=== PATIENT | male | born 1975 | race Caucasian/White ===

== ENCOUNTER 2016-09-28 10:25 | Emergency (ER) | payer OTHER ==
[~2016-09-28] VITALS: Ht 182.9 cm; Wt 127.3 kg
--- NOTE | 2016-09-28 10:49 | ED.ADGEN ---
Past History Past Medical History: Diabetes Smoking: Non-smoker Alcohol Use: None Drug Use: None Adult General HPI HPI Patient is a 41 year old male who presents with acute onset of dyspnea just prior to arrival he felt like he couldn't get enough air this lasted less than 15 minutes has since resolved prior to him arriving here. He denies any chest pain or dyspnea now no wheezing no cough no fever. Denies sore throat. Does report a history of irregular heartbeat or perhaps tachyarrhythmias in the past and takes medicine for this. Review of Systems Review of Systems Constitutional: Denies fever or chills [] Eyes: Denies change in visual acuity, redness, or eye pain [] HENT: Denies nasal congestion or sore throat [] Respiratory: Denies cough or shortness of breath [] Cardiovascular: No additional information not addressed in HPI [] GI: Denies abdominal pain, nausea, vomiting, bloody stools or diarrhea [] : Denies dysuria or hematuria [] Musculoskeletal: Denies back pain or joint pain [] Integument: Denies rash or skin lesions [] Neurologic: Denies headache, focal weakness or sensory changes [] Endocrine: Denies polyuria or polydipsia [] Current Medications Current Medications Current Medications Medications (Trade) Dose Ordered Sig/Rashid Start Time Stop Time Status Last Admin Dose Admin Diphenhydramine HCl (Benadryl) 50 mg 1X ONCE 09/28/16 12:20 09/28/16 12:21 DC Insulin Human Regular (NovoLIN R) 10 unit 1X ONCE 09/28/16 11:30 09/28/16 11:31 DC 09/28/16 12:07 10 UNIT Sodium Chloride 1,000 ml @ 1,000 mls/hr 1X ONCE 09/28/16 11:00 09/28/16 11:59 DC 09/28/16 11:28 1,000 MLS/HR Allergies Allergies Allergies Coded Allergies Type Severity Reaction Last Updated Verified No Known Drug Allergies 09/28/16 No Physical Exam Physical Exam Constitutional: Well developed, well nourished, no acute distress, non-toxic appearance. [] HENT: Normocephalic, atraumatic, bilateral external ears normal, oropharynx moist, no oral exudates, nose normal. [] Eyes: PERRLA, EOMI, conjunctiva normal, no discharge. [] Neck: Normal range of motion, no tenderness, supple, no stridor. [] Cardiovascular:Heart rate regular rhythm, no murmur [] Lungs & Thorax: Bilateral breath sounds clear to auscultation [] Abdomen: Bowel sounds normal, soft, no tenderness, no masses, no pulsatile masses. [] Skin: Warm, dry, no erythema, no rash. [] Back: No tenderness, no CVA tenderness. [] Extremities: No tenderness, no cyanosis, no clubbing, ROM intact, no edema. [] Neurologic: Alert and oriented X 3, normal motor function, normal sensory function, no focal deficits noted. [] Psychologic: Affect normal, judgement normal, mood normal. [] Current Patient Data Vital Signs Vital Signs Date Time Temp Pulse Resp B/P (MAP) Pulse Ox O2 Delivery O2 Flow Rate FiO2 09/28/16 10:38 97.8 91 20 96 Room Air Lab Results Laboratory Tests Test 09/28/16 10:48 09/28/16 11:05 Glucose (Fingerstick) 443 mg/dL (70-99) H Sodium Level 132 mmol/L (136-145) L Potassium Level 4.2 mmol/L (3.5-5.1) Chloride Level 95 mmol/L (98-107) L Carbon Dioxide Level 26 mmol/L (21-32) Anion Gap 11 (6-14) Blood Urea Nitrogen 20 mg/dL (8-26) Creatinine 1.3 mg/dL (0.7-1.3) Estimated GFR (Cockcroft-Gault) 61.1 BUN/Creatinine Ratio 15 (6-20) Glucose Level 445 mg/dL (70-99) H Calcium Level 9.1 mg/dL (8.5-10.1) Total Bilirubin 0.8 mg/dL (0.2-1.0) Aspartate Amino Transferase (AST) 24 U/L (15-37) Alanine Aminotransferase (ALT) 44 U/L (16-63) Alkaline Phosphatase 71 U/L (46-116) Total Protein 7.6 g/dL (6.4-8.2) Albumin 4.5 g/dL (3.4-5.0) Albumin/Globulin Ratio 1.5 (1.0-1.7) Accu-Chek EKG EKG EKG [normal sinus rhythm rate of 82 no STEMI QTC of 412 interpreted by me at 11: 30 AM] Radiology/Procedures Radiology/Procedures Chest x-ray no acute pathology images were independently reviewed by me at 11: 59 AM. [] Course & Med Decision Making Course & Med Decision Making Pertinent Labs and Imaging studies reviewed. (See chart for details) Review labs demonstrates hyperglycemia without evidence of diabetic ketoacidosis. EKG and chest x-ray were unremarkable. Patient did have an episode similar to prior to his arrival and they examined him and he was in no distress able to swallow and speak normally with normal vital signs normal pulse rate clear lungs. We gave him IV fluids and IV insulin. I did give him some IV Benadryl to see if that might help prevent further symptoms. Advised follow-up with his PCP for further evaluation and management of his hyperglycemia. Apparently the patient ate at [employer] prior to coming here and did not take his insulin so that probably explains the hyperglycemia. [12:34 PM examination patient's resting comfortably fluids are infused he feels better and wants to go home and discuss test results and findings with the patient and his . Counseled regarding compliance with insulin and the need for follow-up. We will prescribe an albuterol inhaler to be used as needed and recommended Benadryl for any itching or throat swelling.] Final Impression Final Impression Acute dyspnea, poorly controlled diabetes, hyperglycemia [] Problems: Dragon Disclaimer Dragon Disclaimer This electronic medical record was generated, in whole or in part, using a voice recognition dictation system. PORFIRIO ELAM MD Sep 28, 2016 10:49
--- NOTE | 2016-09-28 11:05 | RAD ---
EXAM: Chest one view. HISTORY: Dyspnea. COMPARISON: None. FINDINGS: A frontal view of the chest is obtained. There are no confluent infiltrates. There is no pneumothorax or pleural effusion. The heart is not enlarged. IMPRESSION: 1. No confluent infiltrates.
[2016-09-28] MEDS: IV NORMAL SALINE 1,000ML 1,000 ML IV ONE (11:28)
--- NOTE | 2016-09-28 11:35 | EKG ---
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
[2016-09-28 11:54] LABS: ALBUMIN 4.5 g/dL (3.4-5.0); ALBUMIN/GLOBULIN RATIO 1.5 (1.0-1.7); CALCIUM 9.1 mg/dL (8.5-10.1); CREATININE 1.3 mg/dL (0.7-1.3); GFR 61.1; POTASSIUM 4.2 mmol/L (3.5-5.1); TOTAL BILIRUBIN 0.8 mg/dL (0.2-1.0); TOTAL PROTEIN 7.6 g/dL (6.4-8.2)
[2016-09-28] MEDS: INSULIN REGULAR 100 UNIT/ML 10ML VIAL. IV ONE (12:07)
[2016-09-28] MEDS: diphenhydrAMINE 50 MG/ML VIAL IVP ONE (12:08)
[2016-09-28] MEDS: diphenhydrAMINE 50 MG/ML VIAL IV ONE (12:20)
[2016-09-28] MEDS ORDERED: ALBU6.7H IH (12:41)
[2016-09-28 12:51] VITALS: BP 116/56
== END 2016-09-28 12:52 | disposition home or self-care (01) ==
LOC: ER 10:25
DX: R06.00 Dyspnea, unspecified (principal); E11.65 Type 2 diabetes mellitus with hyperglycemia
CPT/HCPCS: 36415; 71010; 80053; 82947; 93005; 96361; 96374; 96375; 99285; J1200; J1815; J7030

== ENCOUNTER 2018-04-24 20:05 | Emergency (ER) | payer SELFPAY ==
[~2018-04-24] VITALS: Ht 182.9 cm; Wt 134.0 kg
[~2018-04-24 20:05] MED LIST: ALBU2.5V8 IH
--- NOTE | 2018-04-24 20:13 | ED.ADGEN ---
Past History Past Medical History: Angina, Diabetes, Hypertension Past Surgical History: Appendectomy Smoking: Non-smoker Alcohol Use: None Drug Use: None Adult General Chief Complaint Chief Complaint ".. My sugars have been up... and my BP was up tonight... I for got to take my HTN meds this morning.. and Dr. Sarah has been re- doing my diabetic meds... " ".. I just feel off..." HPI HPI Patient is a 43 year old male who presents with above hx and complaints elevated Glucose and HTN. Pt. reports compliance with DM meds that are being moderated by Dr. Sarah. Pt. does admit to not taking his hypertensive meds this morning. Pt. had recently had upper respiratory and bronchitis type illness. No travel. Mother also had the upper respiratory infection now. Pt. denies immunosuppression. Pt. report compliance with his diet. Review of Systems Review of Systems Constitutional: Denies fever or chills [] Eyes: Denies change in visual acuity, redness, or eye pain [] HENT: Complaints of nasal congestion Respiratory: Hx of cough and some wheezing. Cardiovascular: No additional information not addressed in HPI [] GI: Denies abdominal pain, nausea, vomiting, bloody stools or diarrhea [] : Denies dysuria or hematuria [] Musculoskeletal: Denies back pain or joint pain [] Integument: Denies rash or skin lesions [] Neurologic: Denies headache, focal weakness or sensory changes [] Endocrine: Denies polyuria or polydipsia [] All other systems were reviewed and found to be within normal limits, except as documented in this note. Family History Family History Non-contributory Current Medications Current Medications Current Medications Medications (Trade) Dose Ordered Sig/Rashid Start Time Stop Time Status Last Admin Dose Admin Aspirin (Children'S Aspirin) 324 mg 1X ONCE 04/24/18 20:45 04/24/18 20:46 DC 04/24/18 21:01 324 MG Clonidine HCl (Catapres Tts-2) 1 patch 1X ONCE 04/24/18 20:45 04/24/18 20:46 DC 04/24/18 20:59 1 PATCH Clonidine HCl (Catapres) 0.2 mg 1X ONCE 04/24/18 20:45 04/24/18 20:46 DC 04/24/18 21:00 0.2 MG Sodium Chloride 1,000 ml @ 1,000 mls/hr Q1H 04/24/18 20:32 04/24/18 21:31 DC 04/24/18 20:32 1,000 MLS/HR See Nursing for home meds Allergies Allergies Allergies Coded Allergies Type Severity Reaction Last Updated Verified No Known Drug Allergies 09/28/16 No Physical Exam Physical Exam Constitutional:, no acute distress, non-toxic appearance. [] HENT: Normocephalic, atraumatic, bilateral external ears normal, oropharynx moist, no oral exudates, nose clear rhinorrhea. Eyes: PERRLA, EOMI, conjunctiva normal, no discharge. [] Neck: Normal range of motion, no tenderness, supple, no stridor. [] Cardiovascular:Heart rate regular rhythm, no murmur [] Lungs & Thorax: Bilateral breath sounds equal apex with few scattered wheezes on auscultation [] Abdomen: Bowel sounds normal, soft, no tenderness, no masses, no pulsatile masses. Obese. Old surgical scar. Skin: Warm, dry, no erythema, no rash. [] Back: No tenderness, no CVA tenderness. [] Extremities: No tenderness, no cyanosis, no clubbing, ROM intact, no edema. [] No cording noted. Neurologic: Alert and oriented X 3, normal motor function, normal sensory function, no focal deficits noted. [] Psychologic: Affect anxious, judgement normal, mood normal. [] Current Patient Data Vital Signs Vital Signs Date Time Temp Pulse Resp B/P (MAP) Pulse Ox O2 Delivery O2 Flow Rate FiO2 04/24/18 21:37 85 16 170/95 (120) 96 Room Air 04/24/18 20:05 98.1 Lab Results Laboratory Tests Test 04/24/18 20:38 White Blood Count 6.3 x10^3/uL (4.0-11.0) Red Blood Count 5.58 x10^6/uL (4.30-5.70) Hemoglobin 16.6 g/dL (13.0-17.5) Hematocrit 49.1 % (39.0-53.0) Mean Corpuscular Volume 88 fL (79-100) Mean Corpuscular Hemoglobin 30 pg (25-35) Mean Corpuscular Hemoglobin Concent 34 g/dL (31-37) Red Cell Distribution Width 13.3 % (11.5-14.5) Platelet Count 213 x10^3/uL (140-400) Neutrophils (%) (Auto) 64 % (31-73) Lymphocytes (%) (Auto) 27 % (24-48) Monocytes (%) (Auto) 6 % (0-9) Eosinophils (%) (Auto) 3 % (0-3) Basophils (%) (Auto) 1 % (0-3) Neutrophils # (Auto) 4.0 x10^3uL (1.8-7.7) Lymphocytes # (Auto) 1.7 x10^3/uL (1.0-4.8) Monocytes # (Auto) 0.4 x10^3/uL (0.0-1.1) Eosinophils # (Auto) 0.2 x10^3/uL (0.0-0.7) Basophils # (Auto) 0.1 x10^3/uL (0.0-0.2) Prothrombin Time 10.5 SEC (9.4-11.4) Prothrombin Time INR 1.1 (0.9-1.1) PTT 24 SEC (23-33) Urine Collection Type Unknown Urine Color Yellow Urine Clarity Clear Urine pH 6.0 Urine Specific [place] 1.010 Urine Protein Neg (NEG-TRACE) Urine Glucose (UA) 100 mg/dL (NEG) Urine Ketones (Stick) Neg mg/dL (NEG) Urine Blood Neg (NEG) Urine Nitrite Neg (NEG) Urine Bilirubin Neg (NEG) Urine Urobilinogen Dipstick 0.2 mg/dL (0.2 mg/dL) Urine Leukocyte Esterase Neg (NEG) Urine RBC Occ /HPF (0-2) Urine WBC 1-4 /HPF (0-4) Urine Squamous Epithelial Cells Few /LPF Urine Bacteria 0 /HPF (0-FEW) Urine Mucus Slight /LPF Sodium Level 141 mmol/L (136-145) Potassium Level 3.8 mmol/L (3.5-5.1) Chloride Level 100 mmol/L (98-107) Carbon Dioxide Level 29 mmol/L (21-32) Anion Gap 12 (6-14) Blood Urea Nitrogen 8 mg/dL (8-26) Creatinine 0.7 mg/dL (0.7-1.3) Estimated GFR (Cockcroft-Gault) 123.7 Glucose Level 179 mg/dL (70-99) H Calcium Level 9.0 mg/dL (8.5-10.1) Magnesium Level 1.8 mg/dL (1.8-2.4) Total Bilirubin 0.6 mg/dL (0.2-1.0) Direct Bilirubin 0.2 mg/dL (0.0-0.2) Aspartate Amino Transferase (AST) 31 U/L (15-37) Alanine Aminotransferase (ALT) 71 U/L (16-63) H Alkaline Phosphatase 65 U/L (46-116) Creatine Kinase 332 U/L (39-308) H Troponin I Quantitative < 0.017 ng/mL (0-0.055) SX-Xqh-X-Type Natriuretic Peptide 27 pg/mL (0-124) Total Protein 7.7 g/dL (6.4-8.2) Albumin 4.2 g/dL (3.4-5.0) Lipase 145 U/L (73-393) Urine Opiates Screen Neg (NEG) Urine Methadone Screen Neg (NEG) Urine Barbiturates Neg (NEG) Urine Phencyclidine Screen Neg (NEG) Urine Amphetamine/Methamphetamine Neg (NEG) Urine Benzodiazepines Screen Neg (NEG) Urine Cocaine Screen Neg (NEG) Urine Cannabinoids Screen Pos (NEG) Urine Ethyl Alcohol Neg (NEG) EKG EKG My interpretation of EKG shows sinus 82, slightly prolonged SC interval. Mild Lt axis[]. No findings of acute STEMI with contralateral changes. Radiology/Procedures Radiology/Procedures My interpretation of CXR show no acute cardiopulmonary changes. No free air under the diaphragm. [] Course & Med Decision Making Course & Med Decision Making Pertinent Labs and Imaging studies reviewed. (See chart for details) Follow up with primary. Wear Clonidine patch until follow up with Dr. Sarah. Take diabetic and HTN meds as previously directed. Return if any concerns. Push fluids. [] Final Impression Final Impression 1. Accelerated Hypertension 2. DM- 179 3. Recent Respiratory Infection[] 4. Marijuana use Dragon Disclaimer Dragon Disclaimer This electronic medical record was generated, in whole or in part, using a voice recognition dictation system. HARRY FAIR MD Apr 24, 2018 20:13
[2018-04-24] MEDS ORDERED: IV NORMAL SALINE 1,000ML 1,000 ML IV SCH (20:32)
[2018-04-24] MEDS ORDERED: ASPIRIN 81 MG TAB.CHEW PO ONE (20:45)
[2018-04-24] MEDS ORDERED: cloNIDine TTS-2 1 PATCH PATCH TD ONE (20:45)
[2018-04-24] MEDS ORDERED: cloNIDine HCL 0.1 MG TABLET PO ONE (20:45)
[2018-04-24 20:57] LABS: BASO # 0.1 x10^3/uL (0.0-0.2); BASO % 1 % (0-3); EOS # 0.2 x10^3/uL (0.0-0.7); EOS % 3 % (0-3); HEMATOCRIT 49.1 % (39.0-53.0); HEMOGLOBIN 16.6 g/dL (13.0-17.5); LYMPH # 1.7 x10^3/uL (1.0-4.8); LYMPH % 27 % (24-48); MEAN CORPUSCULAR HEMOGLOBIN 30 pg (25-35); MEAN CORPUSCULAR HGB CONC 34 g/dL (31-37); MEAN CORPUSCULAR VOLUME 88 fL (79-100); MONO # 0.4 x10^3/uL (0.0-1.1); MONO % 6 % (0-9); NEUT % 64 % (31-73); PLATELET COUNT 213 x10^3/uL (140-400); RED BLOOD COUNT 5.58 x10^6/uL (4.30-5.70); RED CELL DISTRIBUTION WIDTH 13.3 % (11.5-14.5); WHITE BLOOD COUNT 6.3 x10^3/uL (4.0-11.0)
--- NOTE | 2018-04-24 21:01 | EKG ---
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
[2018-04-24 21:14] LABS: BARBITURATES NEG (NEG); BENZODIAZEPINES NEG (NEG); CANNABINOIDS POS (NEG); COCAINE NEG (NEG); METHADONE NEG (NEG); OPIATES NEG (NEG); PHENCYCLIDINE NEG (NEG)
[2018-04-24 21:15] LABS: AMPHETAMINE/METHAMPHETAMINE NEG (NEG)
[2018-04-24 21:20] LABS: ALBUMIN 4.2 g/dL (3.4-5.0); CREATININE 0.7 mg/dL (0.7-1.3); DIRECT BILIRUBIN 0.2 mg/dL (0.0-0.2); GFR 123.7; MAGNESIUM 1.8 mg/dL (1.8-2.4); POTASSIUM 3.8 mmol/L (3.5-5.1); TOTAL BILIRUBIN 0.6 mg/dL (0.2-1.0); TOTAL PROTEIN 7.7 g/dL (6.4-8.2)
[2018-04-24 21:23] LABS: BILIRUBIN,URINE NEG (NEG); CLARITY,URINE CLEAR; COLOR,URINE YELLOW; GLUCOSE,URINE 100 mg/dL (NEG)
[2018-04-24 21:24] LABS: BACTERIA,URINE 0 /HPF (0-FEW); NITRITE,URINE NEG (NEG); RBC,URINE OCC /HPF (0-2); SQUAMOUS EPITHELIAL CELL,UR FEW /LPF; UROBILINOGEN,URINE 0.2 mg/dL (0.2 mg/dL)
[2018-04-24 22:10] VITALS: BP 149/68
--- NOTE | 2018-04-24 23:21 | RAD ---
Examination: CHEST PA LATERAL History: Cough, congestion, high blood pressure Comparison/Correlation: 09/28/2016 AP view of the chest Findings: Frontal and lateral views of chest were obtained. Heart size and pulmonary vasculature are normal. No infiltrate or effusion. No pneumothorax. Calcified granulomas are present. Bony structures are unremarkable for the patient's age. Impression: No active disease. Electronically signed by: Michael Ramirez MD (04/24/2018 11:17 PM) [facility]
[2018-04-28] MEDS ORDERED: LABE200T4 PO (10:32)
[2018-04-28] MEDS ORDERED: HYDR12.58 PO (10:32)
[2018-04-28] MEDS ORDERED: AMOX1TAB61 PO (10:33)
== END 2018-04-24 22:30 | disposition home or self-care (01) ==
LOC: ER 20:05
DX: E11.65 Type 2 diabetes mellitus with hyperglycemia (principal); I10 Essential (primary) hypertension; F12.90 Cannabis use, unspecified, uncomplicated
CPT/HCPCS: 36415; 71046; 80048; 80076; 80307; 81001; 82550; 83690; 83735; 83880; 84443; 84484; 85025; 85610; 85730; 93005; 96360; 96361; 99284-25; J7030

== ENCOUNTER 2018-04-25 22:41 | Emergency (ER) | payer SELFPAY ==
[~2018-04-25] VITALS: Ht 182.9 cm; Wt 132.6 kg
--- NOTE | 2018-04-25 22:56 | ED.ADGEN ---
Past History Past Medical History: Angina, Anxiety, Diabetes, Hypertension Past Surgical History: Appendectomy, Other Smoking: Non-smoker Alcohol Use: Rarely Drug Use: None Adult General Chief Complaint Chief Complaint ".. My BP is up again.. and I just not feeling right..." [facility] HPI Patient is a 43 year old male who presents with complaints of elevated BP. Pt. seen yesterday for similar complaints. Patient at time discharge on clonidine 0.2mg patch. She'll follow-up with his primary with moderation in his blood pressure meds. Patient currently taking lisinopril 40 mg a day. Carvedilol 3.125 twice a day. Patient still has clonidine patch on. Patient suspects his elevated blood pressures due pending job interview and emotional stress. Patient denies any other changes such yesterday. Patient normally follows with Dr. Kramer and Dr. Sarah. . Review of Systems Review of Systems Constitutional: Denies fever or chills [] Eyes: Denies change in visual acuity, redness, or eye pain [] HENT: Denies nasal congestion or sore throat [] Respiratory: Denies cough or shortness of breath [] Cardiovascular: No additional information not addressed in HPI [] GI: Denies abdominal pain, nausea, vomiting, bloody stools or diarrhea [] : Denies dysuria or hematuria [] Musculoskeletal: Denies back pain or joint pain [] Integument: Denies rash or skin lesions [] Neurologic: Denies headache, focal weakness or sensory changes [] Endocrine: Denies polyuria or polydipsia [] All other systems were reviewed and found to be within normal limits, except as documented in this note. Family History Family History Hypertension diabetes Current Medications Current Medications Current Medications Medications (Trade) Dose Ordered Sig/Rashid Start Time Stop Time Status Last Admin Dose Admin Clonidine HCl (Catapres) 0.2 mg 1X ONCE 04/26/18 01:30 04/26/18 01:30 DC 04/26/18 01:07 0.2 MG Labetalol HCl (Normodyne) 20 mg 1X ONCE 04/25/18 23:30 04/25/18 23:31 DC Lactated Ringer's 1,000 ml @ 100 mls/hr Q10H 04/25/18 23:00 04/26/18 01:14 DC 04/25/18 23:33 100 MLS/HR Magnesium Hydroxide (Milk Of Magnesia) 2,400 mg 1X ONCE 04/26/18 01:30 04/26/18 01:30 DC 04/26/18 01:06 2,400 MG Magnesium Sulfate 50 ml @ 25 mls/hr 1X ONCE 04/26/18 01:00 04/26/18 01:14 DC See nursing for home meds Allergies Allergies Allergies Coded Allergies Type Severity Reaction Last Updated Verified No Known Drug Allergies 09/28/16 No Physical Exam Physical Exam Constitutional: , no acute distress, non-toxic appearance. [] HENT: Normocephalic, atraumatic, bilateral external ears normal, oropharynx moist, no oral exudates, nose normal. [] Eyes: PERRLA, EOMI, conjunctiva normal, no discharge. [] Glasses Neck: Normal range of motion, no tenderness, supple, no stridor. [] Cardiovascular:Heart rate regular rhythm, no murmur [] Lungs & Thorax: Bilateral breath sounds clear to auscultation [] Abdomen: Bowel sounds normal, soft, no tenderness, no masses, no pulsatile masses. [] Obese. Old surgical scars. Skin: Warm, dry, no erythema, no rash. [] Back: No tenderness, no CVA tenderness. [] Extremities: No tenderness, no cyanosis, no clubbing, ROM intact, no edema. [] Neurologic: Alert and oriented X 3, normal motor function, normal sensory function, no focal deficits noted. [] Psychologic: Affect anxious, judgement normal, mood normal. [] Current Patient Data Vital Signs Vital Signs Date Time Temp Pulse Resp B/P (MAP) Pulse Ox O2 Delivery O2 Flow Rate FiO2 04/26/18 01:07 79 173/91 04/25/18 22:41 98.6 16 98 Room Air Lab Results Laboratory Tests Test 04/25/18 23:10 04/25/18 23:17 White Blood Count 7.1 x10^3/uL (4.0-11.0) Red Blood Count 5.35 x10^6/uL (4.30-5.70) Hemoglobin 15.9 g/dL (13.0-17.5) Hematocrit 46.8 % (39.0-53.0) Mean Corpuscular Volume 88 fL (79-100) Mean Corpuscular Hemoglobin 30 pg (25-35) Mean Corpuscular Hemoglobin Concent 34 g/dL (31-37) Red Cell Distribution Width 13.3 % (11.5-14.5) Platelet Count 247 x10^3/uL (140-400) Neutrophils (%) (Auto) 62 % (31-73) Lymphocytes (%) (Auto) 28 % (24-48) Monocytes (%) (Auto) 7 % (0-9) Eosinophils (%) (Auto) 3 % (0-3) Basophils (%) (Auto) 1 % (0-3) Neutrophils # (Auto) 4.4 x10^3uL (1.8-7.7) Lymphocytes # (Auto) 2.0 x10^3/uL (1.0-4.8) Monocytes # (Auto) 0.5 x10^3/uL (0.0-1.1) Eosinophils # (Auto) 0.2 x10^3/uL (0.0-0.7) Basophils # (Auto) 0.1 x10^3/uL (0.0-0.2) Sodium Level 141 mmol/L (136-145) Potassium Level 3.6 mmol/L (3.5-5.1) Chloride Level 102 mmol/L (98-107) Carbon Dioxide Level 29 mmol/L (21-32) Anion Gap 10 (6-14) Blood Urea Nitrogen 10 mg/dL (8-26) Creatinine 0.8 mg/dL (0.7-1.3) Estimated GFR (Cockcroft-Gault) 106.0 Glucose Level 127 mg/dL (70-99) H Calcium Level 9.0 mg/dL (8.5-10.1) Magnesium Level 1.6 mg/dL (1.8-2.4) L Total Bilirubin 0.5 mg/dL (0.2-1.0) Direct Bilirubin 0.1 mg/dL (0.0-0.2) Aspartate Amino Transferase (AST) 32 U/L (15-37) Alanine Aminotransferase (ALT) 66 U/L (16-63) H Alkaline Phosphatase 63 U/L (46-116) Creatine Kinase 381 U/L (39-308) H Troponin I Quantitative < 0.017 ng/mL (0-0.055) XI-Osw-G-Type Natriuretic Peptide 36 pg/mL (0-124) Total Protein 7.4 g/dL (6.4-8.2) Albumin 4.1 g/dL (3.4-5.0) Urine Collection Type Unknown Urine Color Yellow Urine Clarity Clear Urine pH 6.5 Urine Specific [place] 1.010 Urine Protein Neg (NEG-TRACE) Urine Glucose (UA) Neg mg/dL (NEG) Urine Ketones (Stick) Neg mg/dL (NEG) Urine Blood Neg (NEG) Urine Nitrite Neg (NEG) Urine Bilirubin Neg (NEG) Urine Urobilinogen Dipstick 0.2 mg/dL (0.2 mg/dL) Urine Leukocyte Esterase Neg (NEG) Urine RBC 0 /HPF (0-2) Urine WBC Occ /HPF (0-4) Urine Squamous Epithelial Cells Occ /LPF Urine Bacteria 0 /HPF (0-FEW) Urine Opiates Screen Neg (NEG) Urine Methadone Screen Neg (NEG) Urine Barbiturates Neg (NEG) Urine Phencyclidine Screen Neg (NEG) Urine Amphetamine/Methamphetamine Neg (NEG) Urine Benzodiazepines Screen Neg (NEG) Urine Cocaine Screen Neg (NEG) Urine Cannabinoids Screen Pos (NEG) Urine Ethyl Alcohol Neg (NEG) EKG EKG My interpretation EKG shows a sinus rhythm at 82 bpm. Does have a prolonged [place] interval. Does have some leftward axis. Some nonspecific anterior septal changes.No findings acute STEMI with contralateral changes.[] Radiology/Procedures Radiology/Procedures My interpretation chest x-ray shows no acute cardio pulmonary changes.[] Course & Med Decision Making Course & Med Decision Making Pertinent Labs and Imaging studies reviewed. (See chart for details). Patient to continue current hypertensive meds. Patient to keep follow-up with his primary care to moderate his med dosages. Patient return if any concerns. [] Final Impression Final Impression 1. Accelerated HTN[] 2. Hypo magnesium 3. DM 127 Dragon Disclaimer Dragon Disclaimer This electronic medical record was generated, in whole or in part, using a voice recognition dictation system. Dragon Disclaimer This chart was dictated in whole or in part using Voice Recognition software in a busy, high-work load, and often noisy Emergency Department environment. It may contain unintended and wholly unrecognized errors or omissions. Discharge Summary Visit Information Final Diagnosis Problems Medical Problems: (1) Accelerated hypertension Status: Acute Brief Hospital Course Allergies Allergies Coded Allergies Type Severity Reaction Last Updated Verified No Known Drug Allergies 6/13/17 No Vital Signs Vital Signs Date Time Temp Pulse Resp B/P (MAP) Pulse Ox O2 Delivery O2 Flow Rate FiO2 04/26/18 01:07 79 173/91 04/25/18 22:41 98.6 16 98 Room Air Lab Results Laboratory Tests Test 04/25/18 23:10 04/25/18 23:17 White Blood Count 7.1 x10^3/uL (4.0-11.0) Red Blood Count 5.35 x10^6/uL (4.30-5.70) Hemoglobin 15.9 g/dL (13.0-17.5) Hematocrit 46.8 % (39.0-53.0) Mean Corpuscular Volume 88 fL (79-100) Mean Corpuscular Hemoglobin 30 pg (25-35) Mean Corpuscular Hemoglobin Concent 34 g/dL (31-37) Red Cell Distribution Width 13.3 % (11.5-14.5) Platelet Count 247 x10^3/uL (140-400) Neutrophils (%) (Auto) 62 % (31-73) Lymphocytes (%) (Auto) 28 % (24-48) Monocytes (%) (Auto) 7 % (0-9) Eosinophils (%) (Auto) 3 % (0-3) Basophils (%) (Auto) 1 % (0-3) Neutrophils # (Auto) 4.4 x10^3uL (1.8-7.7) Lymphocytes # (Auto) 2.0 x10^3/uL (1.0-4.8) Monocytes # (Auto) 0.5 x10^3/uL (0.0-1.1) Eosinophils # (Auto) 0.2 x10^3/uL (0.0-0.7) Basophils # (Auto) 0.1 x10^3/uL (0.0-0.2) Sodium Level 141 mmol/L (136-145) Potassium Level 3.6 mmol/L (3.5-5.1) Chloride Level 102 mmol/L (98-107) Carbon Dioxide Level 29 mmol/L (21-32) Anion Gap 10 (6-14) Blood Urea Nitrogen 10 mg/dL (8-26) Creatinine 0.8 mg/dL (0.7-1.3) Estimated GFR (Cockcroft-Gault) 106.0 Glucose Level 127 mg/dL (70-99) Calcium Level 9.0 mg/dL (8.5-10.1) Magnesium Level 1.6 mg/dL (1.8-2.4) Total Bilirubin 0.5 mg/dL (0.2-1.0) Direct Bilirubin 0.1 mg/dL (0.0-0.2) Aspartate Amino Transf (AST/SGOT) 32 U/L (15-37) Alanine Aminotransferase (ALT/SGPT) 66 U/L (16-63) Alkaline Phosphatase 63 U/L (46-116) Creatine Kinase 381 U/L (39-308) Troponin I Quantitative < 0.017 ng/mL (0-0.055) FY-Hvw-A-Type Natriuretic Peptide 36 pg/mL (0-124) Total Protein 7.4 g/dL (6.4-8.2) Albumin 4.1 g/dL (3.4-5.0) Urine Collection Type Unknown Urine Color Yellow Urine Clarity Clear Urine pH 6.5 Urine Specific [place] 1.010 Urine Protein Neg (NEG-TRACE) Urine Glucose (UA) Neg mg/dL (NEG) Urine Ketones (Stick) Neg mg/dL (NEG) Urine Blood Neg (NEG) Urine Nitrite Neg (NEG) Urine Bilirubin Neg (NEG) Urine Urobilinogen Dipstick 0.2 mg/dL (0.2 mg/dL) Urine Leukocyte Esterase Neg (NEG) Urine RBC 0 /HPF (0-2) Urine WBC Occ /HPF (0-4) Urine Squamous Epithelial Cells Occ /LPF Urine Bacteria 0 /HPF (0-FEW) Urine Opiates Screen Neg (NEG) Urine Methadone Screen Neg (NEG) Urine Barbiturates Neg (NEG) Urine Phencyclidine Screen Neg (NEG) Urine Amphetamine/Methamphetamine Neg (NEG) Urine Benzodiazepines Screen Neg (NEG) Urine Cocaine Screen Neg (NEG) Urine Cannabinoids Screen Pos (NEG) Urine Ethyl Alcohol Neg (NEG) Brief Hospital Course Mr. Ceja is a 43 old male who presented with accelerated HTN. Pt. elects to follow up primary. Continue current meds. Return if any concerns. Discharge Information Condition at Discharge: Improved, Stable Disposition/Orders: D/C to Home Dischare Medications Current Medications Lactated Ringer's 1,000 ml @ 100 mls/hr Q10H IV Last administered on 04/25/18at 23:33; Admin Dose 100 MLS/HR; Start 04/25/18 at 23:00; Stop 04/26/18 at 01:14; Status DC Labetalol HCl (Normodyne) 20 mg 1X ONCE IVP ; Start 04/25/18 at 23:30; Stop 04/25 at 23:31; Status DC Magnesium Sulfate 50 ml @ 25 mls/hr 1X ONCE IV ; Start 04/26/18 at 01:00; Stop 04/26/18 at 01:14; Status DC Magnesium Hydroxide (Milk Of Magnesia) 2,400 mg 1X ONCE PO Last administered on 04/26/18at 01:06; Admin Dose 2,400 MG; Start 04/26/18 at 01:30; Stop 04/26/18 at 01:30; Status DC Clonidine HCl (Catapres) 0.2 mg 1X ONCE PO Last administered on 04/26/18at 01:07 ; Admin Dose 0.2 MG; Start 04/26/18 at 01:30; Stop 04/26/18 at 01:30; Status DC Active Scripts Active Proventil Hfa Inhaler (Albuterol Sulfate) 6.7 Gm Hfa.aer.ad 1 Puff IH PRN Q4HRS PRN 30 Days HARRY FAIR MD Apr 25, 2018 22:56
[2018-04-25] MEDS ORDERED: IV RINGERS SOLUTION,LACTATED 1,000 ML IV SCH (23:00)
[2018-04-25] MEDS ORDERED: LABETALOL 20 MG/4 ML DISP.SYRIN. IVP ONE (23:30)
[2018-04-25 23:37] LABS: BASO # 0.1 x10^3/uL (0.0-0.2); BASO % 1 % (0-3); EOS # 0.2 x10^3/uL (0.0-0.7); EOS % 3 % (0-3); HEMATOCRIT 46.8 % (39.0-53.0); HEMOGLOBIN 15.9 g/dL (13.0-17.5); LYMPH % 28 % (24-48); MEAN CORPUSCULAR HEMOGLOBIN 30 pg (25-35); MEAN CORPUSCULAR HGB CONC 34 g/dL (31-37); MEAN CORPUSCULAR VOLUME 88 fL (79-100); MONO # 0.5 x10^3/uL (0.0-1.1); MONO % 7 % (0-9); NEUT # 4.4 x10^3uL (1.8-7.7); NEUT % 62 % (31-73); PLATELET COUNT 247 x10^3/uL (140-400); RED BLOOD COUNT 5.35 x10^6/uL (4.30-5.70); RED CELL DISTRIBUTION WIDTH 13.3 % (11.5-14.5); WHITE BLOOD COUNT 7.1 x10^3/uL (4.0-11.0)
[2018-04-25 23:43] LABS: BACTERIA,URINE 0 /HPF (0-FEW); BILIRUBIN,URINE NEG (NEG); CLARITY,URINE CLEAR; COLOR,URINE YELLOW; GLUCOSE,URINE NEG (NEG); NITRITE,URINE NEG (NEG); RBC,URINE 0 /HPF (0-2); SQUAMOUS EPITHELIAL CELL,UR OCC /LPF; UROBILINOGEN,URINE 0.2 mg/dL (0.2 mg/dL); WBC,URINE OCC /HPF (0-4)
[2018-04-25 23:48] LABS: BARBITURATES NEG (NEG); BENZODIAZEPINES NEG (NEG); CANNABINOIDS POS (NEG); COCAINE NEG (NEG); METHADONE NEG (NEG); OPIATES NEG (NEG); PHENCYCLIDINE NEG (NEG)
[2018-04-25 23:49] LABS: AMPHETAMINE/METHAMPHETAMINE NEG (NEG)
[2018-04-26] LABS: ALBUMIN 4.1 g/dL (3.4-5.0); CREATININE 0.8 mg/dL (0.7-1.3); DIRECT BILIRUBIN 0.1 mg/dL (0.0-0.2); POTASSIUM 3.6 mmol/L (3.5-5.1); TOTAL BILIRUBIN 0.5 mg/dL (0.2-1.0); TOTAL PROTEIN 7.4 g/dL (6.4-8.2)
[2018-04-26 00:06] LABS: MAGNESIUM 1.6 mg/dL (1.8-2.4)
--- NOTE | 2018-04-26 00:13 | RAD ---
Examination: CHEST PA LATERAL History: HYPERTENSION, JUST DOESN'T FEEL GOOD Comparison/Correlation: 04/24/2018 two-view chest x-ray exam Findings: PA and lateral views of the chest were obtained. Heart size and pulmonary vasculature are normal. No infiltrate or effusion. Bony structures are unremarkable. No pneumothorax. Impression: No active disease. Electronically signed by: Michael Ramirez MD (04/26/2018 12:09 AM) [facility]
[2018-04-26] MEDS ORDERED: MAGNESIUM SULFATE 2GM 50 ML IV ONE (01:00)
[2018-04-26 01:07] VITALS: BP 173/91
[2018-04-26] MEDS ORDERED: cloNIDine HCL 0.1 MG TABLET PO ONE (01:30)
[2018-04-26] MEDS ORDERED: MAGNESIUM HYDROXIDE 2,400 MG/30 ML ORAL.SUSP. PO ONE (01:30)
--- NOTE | 2018-04-26 05:46 | EKG ---
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
[2018-04-26] MEDS ORDERED: INSU100I41 SQ ×2 (22:58)
[2018-04-26] MEDS ORDERED: LEVO112T4 PO (22:58)
[2018-04-26] MEDS ORDERED: METF10007 PO (22:58)
[2018-04-26] MEDS ORDERED: LISI40TA PO (22:58)
[2018-04-26] MEDS ORDERED: MELO15TA23 PO (22:58)
[2018-04-26] MEDS ORDERED: SERT50TA PO (22:58)
[2018-04-26] MEDS ORDERED: ATOR40TA59 PO (22:58)
[2018-04-26] MEDS ORDERED: CARV3.12 PO (22:58)
[2018-04-27] MEDS ORDERED: CLONIDINE TD (04:41)
[2018-04-28] MEDS ORDERED: LABE200T4 PO (10:32)
[2018-04-28] MEDS ORDERED: HYDR12.58 PO (10:32)
[2018-04-28] MEDS ORDERED: AMOX1TAB61 PO (10:33)
== END 2018-04-26 01:11 | disposition home or self-care (01) ==
LOC: ER 22:41
DX: I10 Essential (primary) hypertension (principal); E83.42 Hypomagnesemia; E11.9 Type 2 diabetes mellitus without complications; I20.9 Angina pectoris, unspecified; F41.9 Anxiety disorder, unspecified
CPT/HCPCS: 36415; 71046; 80048; 80076; 80307; 81001; 82550; 83735; 83880; 84443; 84484; 85025; 93005; 99284; J7120

== ENCOUNTER 2018-04-26 19:02 | Inpatient (IN) | payer SELFPAY ==
[~2018-04-26] VITALS: Ht 182.9 cm; Wt 129.8 kg
--- NOTE | 2018-04-26 19:35 | PHYS DOC ---
Past History Past Medical History: Angina, Anxiety, Diabetes, Hypertension, Hypothyroid Past Surgical History: Appendectomy, Other Smoking: Non-smoker Alcohol Use: Rarely Drug Use: None Adult General Chief Complaint Chief Complaint: HYPERTENSION HPI HPI 43-year-old male presents for the third time this emergency room with hypertension. The patient was seen 2 other times by my colleagues. His last visit was yesterday. Patient continues to have hypertension of 200s over 110s. He has been taking his lisinopril and carvedilol. My colleague added clonidine patch yesterday. The patient is wearing these. He has still had hypertension all day. He is also had a headache that he describes as a pressure behind his eyes as well as some mild dizziness. He did not want to be admitted last night because he had a job interview today. He starts a new job next week and is concerned she needs it at this hypertension under control. His PCP was unable to see the patient today. Advised to come back to the emergency room if his blood pressure was over 200. The patient denies fever or chills. He denies change in his diet. He is not noticing changes in weight. Review of Systems Review of Systems Constitutional: Denies fever or chills [] Eyes: Denies change in visual acuity, redness, or eye pain [] HENT: Denies nasal congestion or sore throat [] Respiratory: Denies cough or shortness of breath [] Cardiovascular: No additional information not addressed in HPI [] GI: Denies abdominal pain, nausea, vomiting, bloody stools or diarrhea [] : Denies dysuria or hematuria [] Musculoskeletal: Denies back pain or joint pain [] Integument: Denies rash or skin lesions [] Neurologic: Headache, dizziness. No focal weakness or sensory changes [] Endocrine: Denies polyuria or polydipsia [] All other systems were reviewed and found to be within normal limits, except as documented in this note. Allergies Allergies Allergies Coded Allergies Type Severity Reaction Last Updated Verified No Known Drug Allergies 09/28/16 No Physical Exam Physical Exam Constitutional: Well developed, well nourished, no acute distress, non-toxic appearance. [] HENT: Normocephalic, atraumatic, bilateral external ears normal, oropharynx moist, no oral exudates, nose normal. [] Eyes: PERRLA, EOMI, conjunctiva normal, no discharge. [] Neck: Normal range of motion, no tenderness, supple, no stridor. [] Cardiovascular:Heart rate regular rhythm, no murmur [] Lungs & Thorax: Bilateral breath sounds clear to auscultation [] Abdomen: Bowel sounds normal, soft, no tenderness, no masses, no pulsatile masses. [] Skin: Warm, dry, no erythema, no rash. [] Back: No tenderness, no CVA tenderness. [] Extremities: No tenderness, no cyanosis, no clubbing, ROM intact, no edema. [] Neurologic: Alert and oriented X 3, normal motor function, normal sensory function, no focal deficits noted. [] Psychologic: Affect concerned, judgement normal, mood normal. [] Current Patient Data Vital Signs Vital Signs Date Time Temp Pulse Resp B/P (MAP) Pulse Ox O2 Delivery O2 Flow Rate FiO2 04/26/18 19:10 98.0 107 18 98 Room Air EKG EKG [] Radiology/Procedures Radiology/Procedures [] Course & Med Decision Making Course & Med Decision Making Pertinent Labs and Imaging studies reviewed. (See chart for details) On arrival the patient's blood pressure was 200s over the 110s. He had a frontal headache. I gave the patient his evening dose of carvedilol and his blood pressure has improved to 166/94. The patient is willing to be admitted for further workup at this time. This is his third visit to the ED within a week. I discussed the patient with Dr. Larkin and he has accepted the patient for admission. [] Dragon Disclaimer Dragon Disclaimer This electronic medical record was generated, in whole or in part, using a voice recognition dictation system. Departure Departure: Impression: Primary Impression: Hypertension Disposition: ADMITTED INPATIENT Condition: STABLE Referrals: EMMIE JAIMES MD (PCP) Problem Qualifiers Primary Impression: Hypertension Hypertension type: unspecified Qualified Codes: I10 - Essential (primary) hypertension MARC MARI DO Apr 26, 2018 19:35
[2018-04-26] MEDS ORDERED: CARVEDILOL 3.125 MG TABLET PO ONE (20:00)
[2018-04-26 20:16] LABS: BASO % 1 % (0-3); EOS # 0.2 x10^3/uL (0.0-0.7); EOS % 3 % (0-3); HEMATOCRIT 45.1 % (39.0-53.0); HEMOGLOBIN 15.7 g/dL (13.0-17.5); LYMPH # 1.5 x10^3/uL (1.0-4.8); LYMPH % 31 % (24-48); MEAN CORPUSCULAR HEMOGLOBIN 30 pg (25-35); MEAN CORPUSCULAR HGB CONC 35 g/dL (31-37); MEAN CORPUSCULAR VOLUME 87 fL (79-100); MONO # 0.3 x10^3/uL (0.0-1.1); MONO % 7 % (0-9); NEUT # 2.8 x10^3uL (1.8-7.7); NEUT % 58 % (31-73); PLATELET COUNT 241 x10^3/uL (140-400); RED BLOOD COUNT 5.18 x10^6/uL (4.30-5.70); RED CELL DISTRIBUTION WIDTH 13.1 % (11.5-14.5); WHITE BLOOD COUNT 4.9 x10^3/uL (4.0-11.0)
[2018-04-26 20:29] LABS: ALBUMIN 4.1 g/dL (3.4-5.0); ALBUMIN/GLOBULIN RATIO 1.2 (1.0-1.7); CALCIUM 9.1 mg/dL (8.5-10.1); CREATININE 0.8 mg/dL (0.7-1.3); POTASSIUM 3.6 mmol/L (3.5-5.1); TOTAL BILIRUBIN 0.7 mg/dL (0.2-1.0); TOTAL PROTEIN 7.4 g/dL (6.4-8.2)
[2018-04-26 20:53] LABS: BILIRUBIN,URINE NEG (NEG); CLARITY,URINE CLEAR; COLOR,URINE YELLOW; GLUCOSE,URINE NEG (NEG)
--- NOTE | 2018-04-26 20:53 | RAD ---
Examination: CT HEAD WO CONTRAST History: HYPERTENSION X SEVERAL DAYS, HEADACHE Comparison/Correlation: None Findings: Axial images of the head were obtained without contrast. Ventricles are normal size. Mild atrophy noted. No intracranial hemorrhage, midline shift, or mass effect. Chronic paranasal sinusitis is present. Right maxillary sinus fluid level is present. Impression: Chronic paranasal sinusitis. Acute right maxillary sinusitis. No intracranial hemorrhage. Mild atrophy is present and advanced for age. Correlate with clinical history. Electronically signed by: Michael Ramirez MD (04/26/2018 8:49 PM) [facility]
[2018-04-26 20:54] LABS: NITRITE,URINE NEG (NEG); RBC,URINE 0 /HPF (0-2); UROBILINOGEN,URINE 0.2 mg/dL (0.2 mg/dL); WBC,URINE RARE /HPF (0-4)
[2018-04-26 20:55] LABS: BACTERIA,URINE 0 /HPF (0-FEW); SQUAMOUS EPITHELIAL CELL,UR OCC /LPF
--- NOTE | 2018-04-26 22:00 | NUR ---
Admission: The patient, LEOBARDO RODRIGUES, 43 y/o, M admitted by RIDDHI STEVENS MD, was given written information regarding hospital policies, unit procedures and contact persons. Pt arrived to room 124 via gurney, accompanied by [facility] and nursing sup. Dx: HTN. Pt reports increasingly elevated BP over the past week with readings as high as 201/123. Pt has present to the ED for treatment for the last 3 nights and pt has a clonidine 0.2mg patch in place to his right shoulder from last night. Pt takes BP meds at home, reviewed. 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 Pt denies any CP or discomfort. Placed on telemetry, showing sinus rhythm with HR in the 80s. Pt received dose of Coreg 3.125mg PO in ED and BP improved, 154/94. Will consult cardiology in AM. Discussed POC, V/U. Call light in reach. Valuables were checked and logged. Left in room with patient.
[2018-04-26 22:04] VITALS: BP 154/94
[2018-04-26 22:52] VITALS: BP 161/100
[2018-04-26] MEDS ORDERED: ATOR40TA59 PO (22:58)
[2018-04-26] MEDS ORDERED: SERT50TA PO (22:58)
[2018-04-26] MEDS ORDERED: MELO15TA23 PO (22:58)
[2018-04-26] MEDS ORDERED: LEVO112T4 PO (22:58)
[2018-04-26] MEDS ORDERED: LISI40TA PO (22:58)
[2018-04-26] MEDS ORDERED: INSU100I41 SQ ×2 (22:58)
[2018-04-26] MEDS ORDERED: CARV3.12 PO (22:58)
[2018-04-26] MEDS ORDERED: METF10007 PO (22:58)
[2018-04-27] MEDS ORDERED: CLONIDINE TD (04:41)
[2018-04-27 05:30] VITALS: BP 132/81
[2018-04-27] MEDS: LEVOTHYROXINE 112 MCG TABLET PO SCH (06:11)
--- NOTE | 2018-04-27 07:00 | NUR ---
Cardiology consult called to Dr. Martins. L/M with answering service, awaiting call back.
[2018-04-27 07:56] LABS: ALBUMIN 3.6 g/dL (3.4-5.0); ALBUMIN/GLOBULIN RATIO 1.2 (1.0-1.7); CALCIUM 8.7 mg/dL (8.5-10.1); CREATININE 0.8 mg/dL (0.7-1.3); POTASSIUM 4.1 mmol/L (3.5-5.1); TOTAL BILIRUBIN 0.7 mg/dL (0.2-1.0); TOTAL PROTEIN 6.6 g/dL (6.4-8.2)
[2018-04-27] MEDS ORDERED: CARVEDILOL 3.125 MG TABLET PO SCH (08:00)
[2018-04-27] MEDS: metFORMIN 500 MG TABLET PO SCH ×2 (08:22→17:24)
[2018-04-27] MEDS: MELOXICAM 15 MG TABLET. PO SCH (08:22)
[2018-04-27] MEDS: LISINOPRIL 20 MG TABLET PO SCH (08:22)
[2018-04-27] MEDS: INSULIN NPH/REG INSULIN 70/30 300 UNITS/3 ML INSULN.PEN. SQ SCH (08:27)
[2018-04-27] MEDS ORDERED: SERTRALINE 50 MG TABLET. PO SCH (09:00)
--- NOTE | 2018-04-27 10:18 | PDOC2 ---
CONSULT Date of Admission DATE: 04/27/18 TIME: 09:56 Reason for Consult: accelerated htn Problem List Problems Medical Problems: (1) Hypertension Status: Acute History of Present Illness Mr Ceja is a 43-year-old male who presented to the ED for the third time in several days with complaints of significantly elevated blood pressure. He was last seen day before yesterday when he was noted to have Systolic blood pressure of 200s mmHg. He takes home meds of lisinopril 40mg daily and coreg 3.125 mg twice daily. He reports compliance with his meds. He was started at that time on a clonidine patch. He declined admission due to a job interview. He came back to the ED yesterday with again accelerated hypertension and additional complaints of headache, described as a pressure behind his eyes with associated mild dizziness. He denies fever or chills. He denies chest pain, dyspnea, palpitations, or syncope. He denies congestive symptoms. He reports chronic fatigue, am fatigue, occasional daytime somnolence but is unsure of snoring. He reports history of frequent waking at night and occasional episodes of waking gasping. He reports compliance with medications and is still wearing the Catapres patch. He denies change in his diet or weight. He denies any change in functional capacity. He reports he has noticed a gradual increase in his blood pressure over the last 6 months or so, with a significant increase in the last 2 weeks. He denies any weakness, diplopia or other signs of stroke. CT revealed chronic paranasal sinusitis, acute right maxillary sinusitis but no acute ischemic changes or hemorrhage. Cardiovascular: HTN, hyperipidemia Pulmonary: Asthma Heme/Onc: Other (hodgkins lymphoma s/p radiation) Psych: Depression Musculoskeletal: Osteoarthritis Endocrine: Diabetes, Hypothyroidism Past Surgical History: Appendectomy Family History: Diabetes, Other (KULWINDER) Social History non smoker, no illicit drugs, rare ETOH Current Medications Current Medications Carvedilol (Coreg) 3.125 mg 1X ONCE PO Last administered on 04/26/18at 20:04; Start 04/26/18 at 20:00; Stop 04/26/18 at 20:01; Status DC Insulin Human Isoph/Insulin Regular (HumuLIN 70/30) 80 units DAILYWBKFT SQ Last administered on 04/27/18at 08:27; Start 04/27/18 at 08:00 Insulin Human Isoph/Insulin Regular (HumuLIN 70/30) 90 units DAILYWSUP SQ ; Start 04/27/18 at 17:00 Levothyroxine Sodium (Synthroid) 112 mcg DAILY06 PO Last administered on at 06:11; Start 04/27/18 at 06:00 Sertraline HCl (Zoloft) 50 mg DAILY PO ; Start 04/27/18 at 09:00; Stop 04/27/18 at 09:00; Status DC Atorvastatin Calcium (Lipitor) 40 mg QHS PO ; Start 04/27/18 at 21:00 Carvedilol (Coreg) 3.125 mg BIDWMEALS PO Last administered on 04/27/18at 08:22; Start 04/27/18 at 08:00 Lisinopril (Prinivil) 40 mg DAILY PO Last administered on 04/27/18at 08:22; Start 04/27/18 at 09:00 Meloxicam (Mobic) 15 mg DAILY PO Last administered on 04/27/18at 08:22; Start at 09:00 Metformin HCl (Glucophage) 1,000 mg BIDWMEALS PO Last administered on at 08:22; Start 04/27/18 at 08:00 Active Scripts Active Reported [Clonidine patch] 0.2 Mg TD Q3D Levothyroxine Sodium 112 Mcg Tablet 112 Mcg PO DAILY06 Novolin 70-30 Flexpen (Insulin NPH Hum/Reg Insulin Hm) 100 Unit/1 Ml Insuln.pen 90 Unit SQ DAILYWSUP Novolin 70-30 Flexpen (Insulin NPH Hum/Reg Insulin Hm) 100 Unit/1 Ml Insuln.pen 80 Unit SQ DAILYWBKFT Atorvastatin Calcium 40 Mg Tablet 40 Mg PO QHS Lisinopril 40 Mg Tablet 40 Mg PO DAILY Meloxicam 15 Mg Tablet 15 Mg PO DAILY Coreg (Carvedilol) 3.125 Mg Tablet 3.125 Mg PO BID Metformin Hcl 1,000 Mg Tablet 1,000 Mg PO BID Allergies: Coded Allergies: No Known Drug Allergies (Unverified , 09/28/16) Review of System ros per HPI or negative General: Alert, Oriented X3, Cooperative, No acute distress HEENT: Atraumatic, EOMI, Mucous membr. moist/pink Lungs: Clear to auscultation, Normal air movement Heart: Normal S1, Normal S2, Other (no gallops, clicks or rubs) Abdomen: Normal bowel sounds, Soft, No tenderness Extremities: No cyanosis, No edema, Normal pulses Skin: No rashes Neuro: Normal speech, Strength at 5/5 X4 ext Psych/Mental Status: Mental status NL, Mood NL VITALS Vital Signs Date Time Temp Pulse Resp B/P (MAP) Pulse Ox O2 Delivery O2 Flow Rate FiO2 04/27/18 08:30 Room Air 04/27/18 08:22 67 132/81 04/27/18 05:30 97.8 18 100 Labs Laboratory Tests Test 04/26/18 19:44 04/26/18 20:24 04/27/18 07:23 04/27/18 07:37 White Blood Count 4.9 x10^3/uL (4.0-11.0) Red Blood Count 5.18 x10^6/uL (4.30-5.70) Hemoglobin 15.7 g/dL (13.0-17.5) Hematocrit 45.1 % (39.0-53.0) Mean Corpuscular Volume 87 fL (79-100) Mean Corpuscular Hemoglobin 30 pg (25-35) Mean Corpuscular Hemoglobin Concent 35 g/dL (31-37) Red Cell Distribution Width 13.1 % (11.5-14.5) Platelet Count 241 x10^3/uL (140-400) Neutrophils (%) (Auto) 58 % (31-73) Lymphocytes (%) (Auto) 31 % (24-48) Monocytes (%) (Auto) 7 % (0-9) Eosinophils (%) (Auto) 3 % (0-3) Basophils (%) (Auto) 1 % (0-3) Neutrophils # (Auto) 2.8 x10^3uL (1.8-7.7) Lymphocytes # (Auto) 1.5 x10^3/uL (1.0-4.8) Monocytes # (Auto) 0.3 x10^3/uL (0.0-1.1) Eosinophils # (Auto) 0.2 x10^3/uL (0.0-0.7) Basophils # (Auto) 0.0 x10^3/uL (0.0-0.2) Sodium Level 139 mmol/L (136-145) 141 mmol/L (136-145) Potassium Level 3.6 mmol/L (3.5-5.1) 4.1 mmol/L (3.5-5.1) Chloride Level 99 mmol/L (98-107) 103 mmol/L (98-107) Carbon Dioxide Level 30 mmol/L (21-32) 32 mmol/L (21-32) Anion Gap 10 (6-14) 6 (6-14) Blood Urea Nitrogen 14 mg/dL (8-26) 12 mg/dL (8-26) Creatinine 0.8 mg/dL (0.7-1.3) 0.8 mg/dL (0.7-1.3) Estimated GFR (Cockcroft-Gault) 106.0 106.0 BUN/Creatinine Ratio 18 (6-20) 15 (6-20) Glucose Level 201 mg/dL (70-99) 189 mg/dL (70-99) Calcium Level 9.1 mg/dL (8.5-10.1) 8.7 mg/dL (8.5-10.1) Total Bilirubin 0.7 mg/dL (0.2-1.0) 0.7 mg/dL (0.2-1.0) Aspartate Amino Transf (AST/SGOT) 40 U/L (15-37) 44 U/L (15-37) Alanine Aminotransferase (ALT/SGPT) 68 U/L (16-63) 68 U/L (16-63) Alkaline Phosphatase 68 U/L (46-116) 60 U/L (46-116) Total Protein 7.4 g/dL (6.4-8.2) 6.6 g/dL (6.4-8.2) Albumin 4.1 g/dL (3.4-5.0) 3.6 g/dL (3.4-5.0) Albumin/Globulin Ratio 1.2 (1.0-1.7) 1.2 (1.0-1.7) Urine Collection Type Unknown Urine Color Yellow Urine Clarity Clear Urine pH 6.0 Urine Specific [place] 1.015 Urine Protein Neg (NEG-TRACE) Urine Glucose (UA) Neg mg/dL (NEG) Urine Ketones (Stick) Neg mg/dL (NEG) Urine Blood Neg (NEG) Urine Nitrite Neg (NEG) Urine Bilirubin Neg (NEG) Urine Urobilinogen Dipstick 0.2 mg/dL (0.2 mg/dL) Urine Leukocyte Esterase Neg (NEG) Urine RBC 0 /HPF (0-2) Urine WBC Rare /HPF (0-4) Urine Squamous Epithelial Cells Occ /LPF Urine Bacteria 0 /HPF (0-FEW) Urine Mucus Slight /LPF Glucose (Fingerstick) 169 mg/dL (70-99) Images Head CT Impression: Chronic paranasal sinusitis. Acute right maxillary sinusitis. No intracranial hemorrhage. Mild atrophy is present and advanced for age. Correlate with clinical history. Assessment/Plan 1. accelerated htn - blood pressure at this time is only mildly elevated. As he needs affordable medications I will change him to labetalol and discontinue catapres patch. Add diuretic and check echo. He will need work up for KULWINDER as I believe this is likely contributing factor. Advised aggressive weight reduction. Cr and GFR are normal so will defer renal duplex at this time. He should have follow up every 2-4 weeks for medication titration until pressure at goal. Monitor and adjust meds in the am once Catapres is out of system for better idea of antihypertensive needs. 2. hyperlipidemia - continue statin 3. probable KULWINDER - recommend outpatient sleep study 4. obesity - encourage weight reduction 5. DM - mgmt as per PCP 6. sinusitis - as per PCP ELISE VALENCIA BUSINESS PLANNER Apr 27, 2018 10:18
[2018-04-27 10:55] VITALS: BP 146/94
[2018-04-27] MEDS ORDERED: LABETALOL HCL 100 MG TABLET PO SCH (11:00)
--- NOTE | 2018-04-27 11:36 | NUR ---
Zaida Dodson here this AM, plan is to stay one more night to monitor BP. Pt clonidine patch removed and BP meds changed to HCTZ and Labetolol to control blood pressures. ECHO ordred this AM. Awaiting for Dr Larkin
[2018-04-27 15:30] VITALS: BP 117/75
--- NOTE | 2018-04-27 16:26 | CARD ---
MR#: [id number] Date of Study: 04/27/2018 Ordering Physician: RIDDHI STEVENS, Referring Physician: RIDDHI STEVENS Tech: Liz Loving RDCS APPROVED REPORT EXAM: Two-dimensional and M-mode echocardiogram with Doppler and color Doppler. Other Information Quality : Good INDICATION Hypertension/HCVD 2D DIMENSIONS Left Atrium(2D)4.4 (1.6-4.0cm)IVSd1.2 (0.7-1.1cm) Aortic Root(2D)2.9 (2.0-3.7cm)LVDd4.8 (3.9-5.9cm) PWd1.1 (0.7-1.1cm)LVDs2.9 (2.5-4.0cm) FS (%) 30.9 %SV78.0 ml LVEF(%)60.0 (>50%) Aortic Valve AoV Peak Jeremie.106.7cm/sAoV VTI19.2cm AO Peak GR.4.5mmHgAO Mean GR.3mmHg BALAJI (VTI)4.07cm2 Mitral Valve MV E Ukwccycz891.1cm/sMV DECEL [id number] MV A Argfspow17.6cm/sE/A Ratio1.3 LEFT VENTRICLE The left ventricle is normal size. There is mild concentric left ventricular hypertrophy. The left ve ntricular systolic function is normal and the ejection fraction is within normal range. EF 55% There is normal LV segmental wall motion. Tissue Doppler imaging reveals mild left ventricular diastolic dy sfunction. RIGHT VENTRICLE The right ventricle is normal size. The right ventricular systolic function is normal. ATRIA The left atrium is mildly dilated. The right atrium size is normal. The interatrial septum is intact with no evidence for an atrial septal defect or patent foramen ovale as noted on 2-D or Doppler imagi ng. AORTIC VALVE The aortic valve is normal in structure and function. Doppler and Color Flow revealed no significant aortic regurgitation. There is no significant aortic valvular stenosis. MITRAL VALVE The mitral valve is normal in structure and function. There is no evidence of mitral valve prolapse. There is no mitral valve stenosis. Doppler and Color-flow revealed trace mitral regurgitation. TRICUSPID VALVE The tricuspid valve is normal in structure and function. Doppler and Color Flow revealed no tricuspid valve regurgitation noted. There is no tricuspid valve stenosis. PULMONIC VALVE The pulmonic valve is not well visualized. Doppler and Color Flow revealed no pulmonic valvular regur gitation. There is no pulmonic valvular stenosis. GREAT VESSELS The aortic root is normal in size. The ascending aorta is not well seen. The IVC was not visualized. PERICARDIAL EFFUSION There is no evidence of significant pericardial effusion. Critical Notification Critical Value: No <Conclusion> The left ventricular systolic function is normal and the ejection fraction is within normal range. EF 55% There is normal LV segmental wall motion. Signed by : Josef Martins, Electronically Approved : 04/27/2018 16:24:26
--- NOTE | 2018-04-27 16:41 | HP ---
ADMIT DATE: 04/26/2018 HISTORY OF PRESENT ILLNESS: The patient is a 43-year-old male patient who came to the Emergency Room for the third time in several days with a complaint of significantly elevated blood pressure. He was seen about 5 days ago, systolic pressure of 200 mmHg. He took home medication lisinopril 40 mg once a day and Coreg 3.125 mg twice a day and did report compliance with medication. He was started on that time on clonidine patch. He declined admission due to a job interview, he came back to the Emergency yesterday again with accelerated hypertension and additional complaint of headache described as a pressure behind his eyes, associated with mild dizziness. He denied any chest pain, shortness of breath, orthopnea, paroxysmal nocturnal dyspnea. Denied any cough, phlegm or hemoptysis. He said that his blood pressure was under well control before, but has been rising gradually. He was evaluated again in the Emergency Room. He had had a CT scan of the head, which showed no intracranial hemorrhage. He has chronic paranasal sinusitis, acute right maxillary sinusitis, has also mild atrophy is present and ventricles are normal in size with mild atrophy noted. No intracranial hemorrhage, midline shift, or mass effect and was admitted to attempt to achieve a better control of his blood pressure. His lab work was unremarkable. In fact, his kidney function was normal with a creatinine of 0.8. PAST MEDICAL HISTORY: Significant for hypertension, type 2 diabetes, hyperlipidemia, and hypothyroidism. PAST SURGICAL HISTORY: Significant for appendectomy and Hodgkin lymphoma diagnosed with biopsy of cervical lymph nodes and treated with radiation therapy in 1995. He was followed for about 10 years and was told that he is in remission. ALLERGIES: HE HAS NO KNOWN DRUG ALLERGIES. MEDICATIONS: He is currently on atorvastatin calcium 40 mg at bedtime, carvedilol 3.125 mg twice a day, lisinopril 40 mg once a day, Meloxicam 15 mg daily, metformin 1000 mg twice a day. He is on Novolin 70/30 FlexPen 80 units subcutaneously daily with breakfast. He is on 70/30, 90 units subcutaneously daily with supper. He is also on levothyroxine sodium 112 mcg once a day, clonidine TTS patch q. 72 hours. FAMILY HISTORY: The patient has 2 brothers who are younger and healthy. His father when he was 22 years old and apparently was killed. His mother is alive at the age of 60. SOCIAL HISTORY: He is single, never , has no children. Does not smoke, drink alcohol or use any recreational drugs. REVIEW OF SYSTEMS: The patient denied any blurring of vision, cataract, glaucoma or macular degeneration. Denied any laser photocoagulation. Denied any earache, tinnitus or sensorineural deafness. Denied any nosebleeds, but he did complain of stuffy nose. Denied any postnasal drip. Denied any sore throat, sore tongue, toothache, hoarseness of voice or difficulty swallowing. He did complain of some nausea this morning, but no vomiting, no diarrhea or constipation. No hematemesis, melena or hematochezia. He denied any dysuria, frequency or hematuria. Denied any chest pain, shortness of breath, orthopnea, paroxysmal nocturnal dyspnea. Denied any cough, phlegm or hemoptysis. PHYSICAL EXAMINATION: GENERAL: On arrival to the Emergency Room yesterday. VITAL SIGNS: His heart rate was 107, blood pressure was 154/84, temperature was 98, respiratory rate was 18 and oxygen saturation was 98%. HEAD, EYES, EARS, NOSE AND THROAT: Showed normocephalic, atraumatic. NECK: Supple. HEART: Showed normal first and second heart sounds with no gallop, rub or murmur. CHEST: Clear to auscultation. No crepitation or rhonchi. ABDOMEN: Distended, soft, nontender. No guarding or rigidity. No organomegaly. All hernial orifice intact. Bowel sounds normal. NEUROLOGIC: He was awake, alert, responding appropriately. Cranial nerves intact. EXTREMITIES: He moves extremities without difficulty, ambulates without assistance or assistive devices. LABORATORY DATA: On admission showed a white cell count of 4900, hemoglobin was 15.7, hematocrit 45, MCV 87 and platelet count 241,000. Serum sodium was 139, potassium 3.6, chloride 99, bicarbonate 30, anion gap of 10, BUN 14, creatinine 0.8, estimated GFR was 160 mL per minute. His glucose is 101, calcium was 9.1. Total bilirubin and alkaline phosphatase are normal. AST, ALT were slightly elevated. Total protein was 7.4, albumin 4.1. TSH was 2.208. Urinalysis showed the urine was yellow, clear with a pH of 6, specific gravity of 1.015. The urine was negative for protein, glucose, ketones, blood, nitrite and leukocyte esterase. There are no rbc's, no wbc's and no bacteria. CT scan of the head showed that the ventricles are normal in size. There is mild cerebral atrophy, no intracranial hemorrhage with midline shift or mass effect, chronic paranasal sinusitis present. Right maxillary sinus fluid level is present. IMPRESSION: In summary, this is a 43-year-old male patient who was admitted with poorly controlled type 2 diabetes. The patient has hyperlipidemia, hypothyroidism, type 2 diabetes. He has also chronic sinusitis. His body mass index is 39 kilograms per square meter probably has obstructive sleep apnea, might require a sleep study. I will start him on Augmentin for his sinusitis. His blood sugar seems to be generally stable. RIDDHI STEVENS MD DR: SABINE/josh JOB#: [id number] / [id number]
[2018-04-27] MEDS ORDERED: INSULIN NPH/REG INSULIN 70/30 300 UNITS/3 ML INSULN.PEN. SQ SCH (17:00)
[2018-04-27 19:35] VITALS: BP 158/98
[2018-04-27] MEDS: AMOXICILLIN/K CLAV 875/125MG TABLET. PO SCH (20:35)
[2018-04-27] MEDS: LABETALOL HCL 100 MG TABLET PO SCH (20:36)
[2018-04-27] MEDS: LACTOBACILLUS RHAMNOSUS GG 1 CAPSULE. PO SCH (20:36)
[2018-04-27] MEDS ORDERED: ATORVASTATIN CALCIUM 20 MG TABLET PO SCH (21:00)
[2018-04-27 23:00] VITALS: BP 144/90
--- NOTE | 2018-04-28 00:20 | PN ---
DATE: 04/27/2018 SUBJECTIVE: The patient was admitted yesterday for accelerated hypertension and was seen in consultation today by the foreign student adviser teacher with some adjustment to his medication. His Coreg was discontinued. He is now on labetalol 200 mg twice a day as well as hydrochlorothiazide. PHYSICAL EXAMINATION: GENERAL: When I saw him this afternoon, he looked well and was clearly in no apparent respiratory distress. No pallor, jaundice, cyanosis, or thyromegaly. No jugular venous distension. No lower limb edema. VITAL SIGNS: His heart rate was 85, blood pressure 117/75, temperature was 98, respiratory rate 20, and oxygen saturation was 96%. HEAD, EYES, EARS, NOSE AND THROAT: Showed he is normocephalic, atraumatic. NECK: Supple. HEART: Showed normal first and second heart sounds. No gallop, rub or murmur. CHEST: Clear to auscultation. No crepitation or rhonchi. ABDOMEN: Distended, soft, nontender. NEUROLOGIC: He was awake, alert, responding appropriately. Cranial nerves intact. He moves extremities without difficulty, ambulates without assistance or assistive devices. LABORATORY DATA: This morning showed serum sodium of 141, potassium 4.1, chloride 103, bicarbonate 32, anion gap of 6, BUN 12, creatinine 0.8. Estimated GFR was 106 mL per minute. His glucose 189. Calcium was 8.7. Total bilirubin and alkaline phosphatase are normal. AST and ALT slightly elevated. Total protein was 6.6. Albumin was 3.6. ASSESSMENT AND PLAN: 1. Accelerated hypertension, responding well to the adjustment of his medication. He is now on labetalol, hydrochlorothiazide as well as lisinopril. 2. Type 2 diabetes for which he is on metformin as well as 70/30 Humulin insulin. 3. Hyperlipidemia for which he is on atorvastatin. 4. Hypothyroidism for which he is on levothyroxine. 5. Acute maxillary sinusitis for which I have started him on Augmentin 875 mg twice a day. We will check his orthostatics to make sure there is no postural hypotension and if blood pressure remained stable on current regimen, we will discharge him home tomorrow. RIDDHI STEVENS MD DR: SABINE/josh JOB#: [id number] / [id number]
[2018-04-28] MEDS: LEVOTHYROXINE 112 MCG TABLET PO SCH (05:42)
[2018-04-28 06:11] VITALS: BP 128/83
[2018-04-28 06:33] LABS: CALCIUM 8.5 mg/dL (8.5-10.1); CREATININE 0.9 mg/dL (0.7-1.3); GFR 92.5; POTASSIUM 3.4 mmol/L (3.5-5.1)
[2018-04-28] MEDS ORDERED: ACETAMINOPHEN 500 MG TABLET PO PRN (07:30)
[2018-04-28] MEDS: INSULIN NPH/REG INSULIN 70/30 300 UNITS/3 ML INSULN.PEN. SQ SCH (08:00)
[2018-04-28] MEDS: LABETALOL HCL 100 MG TABLET PO SCH (08:47)
[2018-04-28] MEDS: AMOXICILLIN/K CLAV 875/125MG TABLET. PO SCH (08:47)
[2018-04-28 08:48] VITALS: BP 128/83
[2018-04-28] MEDS: MELOXICAM 15 MG TABLET. PO SCH (08:48)
[2018-04-28] MEDS: LACTOBACILLUS RHAMNOSUS GG 1 CAPSULE. PO SCH (08:48)
[2018-04-28] MEDS: metFORMIN 500 MG TABLET PO SCH (08:48)
[2018-04-28] MEDS: LISINOPRIL 20 MG TABLET PO SCH (08:48)
--- NOTE | 2018-04-28 08:52 | PDOC ---
PROGRESS NOTES Diagnosis Problem Problems Medical Problems: (1) Hypertension Status: Acute Assessment Problems Medical Problems: (1) Hypertension Status: Acute Assessment/Plan 1. accelerated htn - blood pressure much better controlled on current medications. Mild LVH by echo. Continue same current meds and follow up outpatient. He should have work up for KULWINDER and can address this with his PCP. advise weight reduction. 2. hyperlipidemia - continue statin 3. probable KULWINDER - recommend outpatient sleep study 4. obesity - encourage weight reduction 5. DM - mgmt as per PCP 6. sinusitis - as per PCP CV stable for discharge. Subjective no complaints of chest pain, dyspnea, palpitations, lightheadedness Objective Vital Signs Date Time Temp Pulse Resp B/P (MAP) Pulse Ox O2 Delivery O2 Flow Rate FiO2 04/28/18 08:48 72 128/83 04/28/18 06:11 98.2 20 96 Room Air Intake and Output 04/28/18 07:01 Intake Total 1500 ml Balance 1500 ml Intake Oral 1500 ml # Voids 2 Abdomen: Normal bowel sounds, Soft, No tenderness Heart: Normal S1, Normal S2, Other (no significant murmurs, no gallops, clicks or rubs) Extremities: No cyanosis, No edema, Normal pulses General: Alert, Oriented X3, Cooperative, No acute distress HEENT: Atraumatic, EOMI Lungs: Clear to auscultation, Normal air movement Neuro: Normal speech, Strength at 5/5 X4 ext Psych/Mental Status: Mental status NL, Mood NL Review of Relevant I have reviewed the following items brenton (where applicable) has been applied. Labs Laboratory Tests Test 04/26/18 19:44 04/26/18 20:24 04/27/18 07:23 04/27/18 07:37 White Blood Count 4.9 x10^3/uL (4.0-11.0) Red Blood Count 5.18 x10^6/uL (4.30-5.70) Hemoglobin 15.7 g/dL (13.0-17.5) Hematocrit 45.1 % (39.0-53.0) Mean Corpuscular Volume 87 fL (79-100) Mean Corpuscular Hemoglobin 30 pg (25-35) Mean Corpuscular Hemoglobin Concent 35 g/dL (31-37) Red Cell Distribution Width 13.1 % (11.5-14.5) Platelet Count 241 x10^3/uL (140-400) Neutrophils (%) (Auto) 58 % (31-73) Lymphocytes (%) (Auto) 31 % (24-48) Monocytes (%) (Auto) 7 % (0-9) Eosinophils (%) (Auto) 3 % (0-3) Basophils (%) (Auto) 1 % (0-3) Neutrophils # (Auto) 2.8 x10^3uL (1.8-7.7) Lymphocytes # (Auto) 1.5 x10^3/uL (1.0-4.8) Monocytes # (Auto) 0.3 x10^3/uL (0.0-1.1) Eosinophils # (Auto) 0.2 x10^3/uL (0.0-0.7) Basophils # (Auto) 0.0 x10^3/uL (0.0-0.2) Sodium Level 139 mmol/L (136-145) 141 mmol/L (136-145) Potassium Level 3.6 mmol/L (3.5-5.1) 4.1 mmol/L (3.5-5.1) Chloride Level 99 mmol/L (98-107) 103 mmol/L (98-107) Carbon Dioxide Level 30 mmol/L (21-32) 32 mmol/L (21-32) Anion Gap 10 (6-14) 6 (6-14) Blood Urea Nitrogen 14 mg/dL (8-26) 12 mg/dL (8-26) Creatinine 0.8 mg/dL (0.7-1.3) 0.8 mg/dL (0.7-1.3) Estimated GFR (Cockcroft-Gault) 106.0 106.0 BUN/Creatinine Ratio 18 (6-20) 15 (6-20) Glucose Level 201 mg/dL (70-99) 189 mg/dL (70-99) Calcium Level 9.1 mg/dL (8.5-10.1) 8.7 mg/dL (8.5-10.1) Total Bilirubin 0.7 mg/dL (0.2-1.0) 0.7 mg/dL (0.2-1.0) Aspartate Amino Transf (AST/SGOT) 40 U/L (15-37) 44 U/L (15-37) Alanine Aminotransferase (ALT/SGPT) 68 U/L (16-63) 68 U/L (16-63) Alkaline Phosphatase 68 U/L (46-116) 60 U/L (46-116) Total Protein 7.4 g/dL (6.4-8.2) 6.6 g/dL (6.4-8.2) Albumin 4.1 g/dL (3.4-5.0) 3.6 g/dL (3.4-5.0) Albumin/Globulin Ratio 1.2 (1.0-1.7) 1.2 (1.0-1.7) Urine Collection Type Unknown Urine Color Yellow Urine Clarity Clear Urine pH 6.0 Urine Specific [place] 1.015 Urine Protein Neg (NEG-TRACE) Urine Glucose (UA) Neg mg/dL (NEG) Urine Ketones (Stick) Neg mg/dL (NEG) Urine Blood Neg (NEG) Urine Nitrite Neg (NEG) Urine Bilirubin Neg (NEG) Urine Urobilinogen Dipstick 0.2 mg/dL (0.2 mg/dL) Urine Leukocyte Esterase Neg (NEG) Urine RBC 0 /HPF (0-2) Urine WBC Rare /HPF (0-4) Urine Squamous Epithelial Cells Occ /LPF Urine Bacteria 0 /HPF (0-FEW) Urine Mucus Slight /LPF Glucose (Fingerstick) 169 mg/dL (70-99) Thyroid Stimulating Hormone (TSH) 2.208 uIU/mL (0.358-3.740) Test 04/27/18 11:52 04/27/18 15:56 04/27/18 20:16 04/28/18 06:05 Glucose (Fingerstick) 139 mg/dL (70-99) 138 mg/dL (70-99) 165 mg/dL (70-99) Sodium Level 143 mmol/L (136-145) Potassium Level 3.4 mmol/L (3.5-5.1) Chloride Level 104 mmol/L (98-107) Carbon Dioxide Level 29 mmol/L (21-32) Anion Gap 10 (6-14) Blood Urea Nitrogen 12 mg/dL (8-26) Creatinine 0.9 mg/dL (0.7-1.3) Estimated GFR (Cockcroft-Gault) 92.5 Glucose Level 103 mg/dL (70-99) Calcium Level 8.5 mg/dL (8.5-10.1) Medications Current Medications Carvedilol (Coreg) 3.125 mg 1X ONCE PO Last administered on 04/26/18 20:04; Start 04/26/18 at 20:00; Stop 04/26/18 at 20:01; Status DC Insulin Human Isoph/Insulin Regular (HumuLIN 70/30) 80 units DAILYWBKFT SQ Last administered on 04/27/18at 08:27; Start 04/27/18 at 08:00 Insulin Human Isoph/Insulin Regular (HumuLIN 70/30) 90 units DAILYWSUP SQ Last administered on 04/27/18 17:28; Start 04/27/18 at 17:00 Levothyroxine Sodium (Synthroid) 112 mcg DAILY06 PO Last administered on at 05:42; Start 04/27/18 at 06:00 Sertraline HCl (Zoloft) 50 mg DAILY PO ; Start 04/27/18 at 09:00; Stop 04/27/18 at 09:00; Status DC Atorvastatin Calcium (Lipitor) 40 mg QHS PO Last administered on 04/27/18at 20: 35; Start 04/27/18 at 21:00 Carvedilol (Coreg) 3.125 mg BIDWMEALS PO Last administered on 04/27/18 08:22; Start 04/27/18 at 08:00; Stop 04/27/18 at 10:41; Status DC Lisinopril (Prinivil) 40 mg DAILY PO Last administered on 04/28/18at 08:48; Start 04/27/18 at 09:00 Meloxicam (Mobic) 15 mg DAILY PO Last administered on 04/28/18at 08:48; Start at 09:00 Metformin HCl (Glucophage) 1,000 mg BIDWMEALS PO Last administered on 08:48; Start 04/27/18 at 08:00 Labetalol HCl (Trandate) 100 mg BID PO Last administered on 04/27/18 12:28; Start 04/27/18 at 11:00; Stop 04/27/18 at 14:04; Status DC Hydrochlorothiazide (Microzide) 12.5 mg DAILY PO Last administered on at 08:47; Start 04/28/18 at 09:00 Labetalol HCl (Trandate) 200 mg BID PO Last administered on 04/28/18at 08:47; Start 04/27/18 at 21:00 Amoxicillin/ Clavulanate Potassium (Augmentin 875/ 125mg) 1 tab BID PO Last administered on 04/28/18at 08:47; Start 04/27/18 at 21:00 Lactobacillus Rhamnosus (Culturelle) 1 cap BID PO Last administered on at 08:48; Start 04/27/18 at 21:00 Acetaminophen (Tylenol) 500 mg PRN Q6HRS PRN PO PAIN / TEMP Last administered on 04/28/18at 07:29; Start 04/28/18 at 07:30 Active Scripts Active Reported [Clonidine patch] 0.2 Mg TD Q3D Levothyroxine Sodium 112 Mcg Tablet 112 Mcg PO DAILY06 Novolin 70-30 Flexpen (Insulin NPH Hum/Reg Insulin Hm) 100 Unit/1 Ml Insuln.pen 90 Unit SQ DAILYWSUP Novolin 70-30 Flexpen (Insulin NPH Hum/Reg Insulin Hm) 100 Unit/1 Ml Insuln.pen 80 Unit SQ DAILYWBKFT Atorvastatin Calcium 40 Mg Tablet 40 Mg PO QHS Lisinopril 40 Mg Tablet 40 Mg PO DAILY Meloxicam 15 Mg Tablet 15 Mg PO DAILY Coreg (Carvedilol) 3.125 Mg Tablet 3.125 Mg PO BID Metformin Hcl 1,000 Mg Tablet 1,000 Mg PO BID Vitals/I & O Vital Sign - Last 24 Hours 04/27/18 04/27/18 04/27/18 04/27/18 10:55 12:28 15:30 19:35 Temp 97.6 98.0 98.2 Pulse 80 80 85 84 Resp 20 18 B/P (MAP) 146/94 (111) 146/94 117/75 (89) 158/98 (118) Pulse Ox 97 96 97 O2 Delivery Room Air Room Air Room Air 04/27/18 04/27/18 04/27/18 04/28/18 20:00 20:36 23:00 06:11 Temp 98.6 98.2 Pulse 84 81 72 Resp 18 20 B/P (MAP) 158/98 144/90 (108) 128/83 (98) Pulse Ox 95 96 O2 Delivery Room Air Room Air Room Air 04/28/18 04/28/18 08:47 08:48 Pulse 72 72 B/P (MAP) 128/83 128/83 Intake and Output 04/27/18 04/27/18 04/28/18 15:01 23:01 07:01 Intake Total 840 ml 560 ml 100 ml Balance 840 ml 560 ml 100 ml ELISE VALENCIA APRN Apr 28, 2018 08:52
[2018-04-28] MEDS ORDERED: hydroCHLOROthiazide 12.5 MG CAPSULE PO SCH (09:00)
[2018-04-28] MEDS ORDERED: LABE200T4 PO (10:32)
[2018-04-28] MEDS ORDERED: HYDR12.58 PO (10:32)
[2018-04-28] MEDS ORDERED: AMOX1TAB61 PO (10:33)
--- NOTE | 2018-04-28 11:13 | DS ---
DATE OF DISCHARGE: 04/28/2018 HOSPITAL COURSE: The patient is a 43-year-old male patient, who was seen in the Emergency Room about 3 times. He was admitted with accelerated hypertension. His antihypertensive medication was switched. He was started on labetalol as well as hydrochlorothiazide and continued lisinopril and his blood pressure is definitely much better controlled now. PHYSICAL EXAMINATION: GENERAL: When I examined him this morning, he looked well and was clearly in no apparent respiratory distress. No pallor, jaundice, cyanosis, or thyromegaly. No jugular venous distension. No limb edema. VITAL SIGNS: Heart rate was 72, blood pressure was 128/83, temperature was 98.2, respiratory rate 20, and oxygen saturation was 96%. HEAD, EYES, EARS, NOSE AND THROAT: Normocephalic, atraumatic. NECK: Supple. HEART: Showed normal first and second heart sounds. No gallop, rub or murmur. CHEST: Clear to auscultation. No crepitation or rhonchi. ABDOMEN: Distended, soft, nontender. NEUROLOGIC: He was awake, alert, responding appropriately. All cranial nerves intact. EXTREMITIES: He moves extremities without difficulty, ambulates without assistance or assistive devices. His intake was 1500, no output was recorded. LABORATORY DATA: As of this morning showed a white cell count of 4900, hemoglobin 16, hematocrit 45, MCV 87 and platelet count 241,000. Serum sodium was 143, potassium 3.4, chloride 104, bicarbonate 29, anion gap of 10, BUN 12, creatinine 0.9, estimated GFR was 92 mL per minute, his glucose was 103, calcium was 8.5. TSH was 2.208. DISCHARGE MEDICATIONS: He will be discharged home to continue on following medications: Augmentin 875 mg twice a day with food for 10 days for his acute maxillary sinusitis, hydrochlorothiazide 12.5 mg once a day, labetalol 200 mg twice a day, atorvastatin calcium 40 mg at bedtime, insulin NPH 80 units subcutaneously with breakfast and 90 units with supper, levothyroxine sodium 112 mcg once a day, lisinopril 40 mg once a day, meloxicam 15 mg once a day and metformin 1000 mg twice a day. FINAL DISCHARGE DIAGNOSES: 1. Accelerated hypertension, resolved. His blood pressure is much better controlled. 2. Type 2 diabetes, reasonably controlled on insulin and metformin. 3. Hyperlipidemia, on a statin. 4. Morbid obesity with obstructive sleep apnea for which the patient was encouraged to basically arrange for a sleep study once he had an insurance and he can go to his primary care physician. 5. Acute right maxillary sinusitis for which he was started on Augmentin twice a day for 10 days. He was advised to follow with the Cardiology team as an outpatient. RIDDHI STEVENS MD DR: SABINE/nts JOB#: [id number] / [id number]
--- NOTE | 2018-04-28 12:21 | NUR ---
Discharge Note: LEOBARDO RODRIGUES [address] Discharge instructions and discharge home medications reviewed with patient and a copy given. All questions have been answered and understanding verbalized. The following instructions and handouts were given: medications, follow up instructions, prescriptions, and educational handouts given. Discontinued lines and drains: peripheral IV discontinued with no complications. Patient discharged to home with via private vehicle.
[2018-04-28 20:11] LABS: HEMOGLOBIN A1C 10.5 % (4.8-5.6)
== END 2018-04-28 11:50 | disposition home or self-care (01) | DRG 153 ==
LOC: ER 19:02 → 1 SOUTH 20:55
PROVIDERS: ADMIT Internal Medicine; ATTEND Internal Medicine
DX: J01.00 Acute maxillary sinusitis, unspecified (principal); I10 Essential (primary) hypertension; E11.65 Type 2 diabetes mellitus with hyperglycemia; E66.01 Morbid (severe) obesity due to excess calories; E03.9 Hypothyroidism, unspecified; F32.9 Major depressive disorder, single episode, unspecified; E78.5 Hyperlipidemia, unspecified; F41.9 Anxiety disorder, unspecified; G47.33 Obstructive sleep apnea (adult) (pediatric); J45.909 Unspecified asthma, uncomplicated; M19.90 Unspecified osteoarthritis, unspecified site; R53.82 Chronic fatigue, unspecified; Z79.899 Other long term (current) drug therapy; Z68.38 Body mass index [BMI] 38.0-38.9, adult; Z83.3 Family history of diabetes mellitus; Z90.49 Acquired absence of other specified parts of digestive tract; Z92.3 Personal history of irradiation
CPT/HCPCS: 36415; 70450; 80048; 80053; 81001; 82947; 83036; 84443; 85025; 93306; J1815; 99285-25

== ENCOUNTER 2020-03-25 23:26 | Emergency (ER) | payer SELFPAY ==
[~2020-03-25] VITALS: Ht 182.9 cm; Wt 132.6 kg
[~2020-03-25 23:26] MED LIST changes: +AMOX1TAB61 PO; +ATOR40TA59 PO; +CARV3.12 PO; +CLONIDINE TD; +HYDR12.58 PO; +INSU100I41 SQ; +LABE200T4 PO; +LEVO112T4 PO; +LISI40TA PO; +MELO15TA23 PO; +METF10007 PO; +SERT50TA PO
--- NOTE | 2020-03-26 00:04 | PHYS DOC ---
Past History Past Medical History: Arthritis, Diabetes, High Cholesterol, Hypertension, Hypothyroid Past Surgical History: Appendectomy, Cancer Surgery Smoking: Non-smoker Alcohol Use: None Drug Use: None General Adult EDM: Chief Complaint: HYPERTENSION HPI: HPI: 44 year old male presents with history of elevated blood pressure today. Reports his doctors have been adjusting his medications. Reports compliance with his medications. Reports up to 189/107. Denies headache. Denies chest pain. Review of Systems: Review of Systems: Constitutional: Denies fever or chills Eyes: Denies change in visual acuity, redness, or eye pain HENT: Denies nasal congestion or sore throat Respiratory: Denies cough or shortness of breath Cardiovascular: Denies chest pain or palpitations GI: Denies abdominal pain, nausea, vomiting, or diarrhea : Denies dysuria or hematuria Musculoskeletal: Denies back pain or joint pain Integument: Denies rash or skin lesions Neurologic: Denies headache, focal weakness or sensory changes Complete systems were reviewed and found to be within normal limits, except as documented in this note. Allergies: Allergies: Allergies Coded Allergies Type Severity Reaction Last Updated Verified No Known Drug Allergies 09/28/16 No Physical Exam: PE: Constitutional: Well developed, well nourished, no acute distress, non-toxic appearance HENT: Normocephalic, atraumatic Eyes: Conjunctiva normal, no discharge Neck: Normal range of motion, no tenderness, supple, no meningeal signs Lungs & Thorax: Equal chest rise and fall, no respiratory distress Abdomen: Soft, no tenderness Skin: Warm, dry, no erythema, no rash Back: No tenderness, no CVA tenderness Extremities: No tenderness, ROM intact, no edema Neurologic: Alert and oriented X 3, no focal deficits noted Psychologic: Affect anxiety, judgement normal EKG: EKG: [] Radiology/Procedures: Radiology/Procedures: [] Course & Med Decision Making: Course & Med Decision Making Patient presents with concerns regarding his blood pressure. Patient following with PCP regarding adjustment of his medications and felt that it seemed higher than normal today. Improved upon arrival. Patient without other symptoms. Neurologically intact. Discussed patient's concerns. Appears some anxiety component. Advised to follow closely with PCP, keep a blood pressure journal, and to check pressure routinely with same cuff, same time and same situation. Dragon Disclaimer: Dragon Disclaimer: This electronic medical record was generated, in whole or in part, using a voice recognition dictation system. Departure Departure: Impression: Primary Impression: Hypertension Qualified Codes: I10 - Essential (primary) hypertension Disposition: 01 DC HOME SELF CARE/HOMELESS Condition: STABLE Referrals: PCP,QUINN (PCP) Patient Instructions: Hypertension, [id number] Additional Instructions: Keep a blood pressure journal and provide to your doctor. Only take your blood pressure with the same machine, at the same time, and with same circumstance. Resist the urge to take it too many times as it will artificially rise with increased anxiety. CHARLIE KNOWLES DO Mar 26, 2020 00:04
[2020-03-26 00:25] VITALS: BP 168/95
== END 2020-03-26 00:25 | disposition home or self-care (01) ==
LOC: ER 23:26
DX: I10 Essential (primary) hypertension (principal); M19.90 Unspecified osteoarthritis, unspecified site; E11.9 Type 2 diabetes mellitus without complications; E78.00 Pure hypercholesterolemia, unspecified; E03.9 Hypothyroidism, unspecified
CPT/HCPCS: 99281